=== PATIENT | male | born 2000 ===

== ENCOUNTER 2020-04-19 23:58 | Emergency (ER) | payer SELFPAY ==
[~2020-04-19] VITALS: Ht 182.9 cm; Wt 86.2 kg
== END 2020-04-20 01:41 | disposition home or self-care (01) ==
LOC: ER 23:58
DX: F15.10 Other stimulant abuse, uncomplicated (principal); F17.210 Nicotine dependence, cigarettes, uncomplicated
CPT/HCPCS: 99283